=== PATIENT | female | born 1975 | race Two or more races ===

== ENCOUNTER 2017-01-24 05:10 | Emergency (ER) | payer OTHER ==
--- NOTE | 2017-01-24 07:27 | PDOC ---
History of Present Illness - General Chief Complaint: Pain, Acute Stated Complaint: Abdominal Pain Time Seen by Provider: 01/24/17 07:15 History Source: Patient Exam Limitations: No Limitations - History of Present Illness Initial Comments: 01/24/17 07:48 Patient is a 41-year-old female with past medical history of colon cancer, ostomy with reversal who presents to the emergency department today complaining of abdominal pain. Patient states that her pain started approximately at 2 PM yesterday. She states that the pain is crampy in nature and she points that is located in her epigastric and suprapubic regions. She states that the pain is approximately a 6 out of 10. Patient states that she also has headache at this time from the abdominal pain. States that she usually gets headaches. Endorses nausea, vomiting. Denies fevers, chills, head trauma, diarrhea, constipation, chest pain, shortness of breath, hematuria, frequency, urgency and dysuria. Past History - Past Medical History Allergies/Adverse Reactions: Allergies Allergy/AdvReac Type Severity Reaction Status Date / Time hydromorphone HCl AdvReac Severe Verified 01/24/17 07:46 [From Dilaudid] Home Medications: Ambulatory Orders Cephalexin Monohydrate [Keflex -] 500 mg PO Q8H #21 capsule 01/24/17 Ketorolac Tromethamine [Toradol] 10 mg PO TID #21 tablet 01/24/17 Anemia: Yes Asthma: No Cancer: Yes (COLON CANCER) Cardiac Disorders: No CVA: No COPD: No CHF: No Dementia: No Diabetes: No GI Disorders: Yes (CONSTIPATION, RECTAL BLEEDING, COLON CA) Disorders: No HTN: No Hypercholesterolemia: No Liver Disease: No Seizures: No Thyroid Disease: No - Surgical History Abdominal Surgery: Yes (COLON RESECTION,ILEOSTOMY) Appendectomy: No Cardiac Surgery: No Cholecystectomy: No Lung Surgery: No Neurologic Surgery: No Orthopedic Surgery: No - Psycho/Social/Smoking Cessation Hx Anxiety: No Suicidal Ideation: No Smoking Status: No Smoking History: Never smoked Have you smoked in the past 12 months: No Number of Cigarettes Smoked Daily: 0 Hx Alcohol Use: No Drug/Substance Use Hx: No Substance Use Type: None Hx Substance Use Treatment: No Review of Systems - Review of Systems Able to Perform ROS?: Yes Is the patient limited French proficient: No Constitutional: No: Chills, Fever, Malaise Respiratory: No: Cough, Shortness of Breath, Wheezing Cardiac (ROS): No: Chest Pain, Lightheadedness, Palpitations, Syncope ABD/GI: Yes: Nausea, Vomiting, Abdominal cramping. No: Constipated, Diarrhea : No: Burning, Dysuria, Frequency, Flank Pain, Hematuria Musculoskeletal: No: Back Pain Neurological: Yes: Headache. No: Numbness, Tremors, Weakness All Other Systems: Reviewed and Negative *Physical Exam - Physical Exam Comments: 01/24/17 07:45 GENERAL: Well developed, well nourished. AAOx3. No acute distress, breathing easily. HEENT: Normocephalic, atraumatic. PERRLA, EOMI. No conjunctival pallor. Sclera are non- icteric. Moist mucous membranes. Oropharynx is clear. NECK: Supple. Full ROM. No JVD. Carotid pulses 2+ and symmetric, without bruits. No thyromegaly. No lymphadenopathy. CARDIOVASCULAR: Regular rate and rhythm. No murmurs, rubs, or gallops. Distal pulses are 2+ and symmetric. PULMONARY: No evidence of respiratory distress. Lungs clear to auscultation bilaterally. No wheezing, rales or rhonchi. ABDOMINAL: Surgical scar present over the right middle quadrant. TTP of epigastric region and suprapubic region. Soft. Non-distended. No rebound or guarding. No organomegaly. Normoactive bowel sounds. MUSCULOSKELETAL Normal range of motion at all joints. No bony deformities or tenderness. No CVA tenderness. EXTREMITIES: No cyanosis. No clubbing. No edema. No calf tenderness. SKIN: Warm and dry. Normal capillary refill. No rashes. No jaundice. NEUROLOGICAL: Alert, awake, appropriate. Cranial nerves 2-12 intact. No deficits to light touch and temperature in face, upper extremities and lower extremities. No motor deficits in the in face, upper extremities and lower extremities. Normoreflexic in the upper and lower extremities. Normal speech. Toes are down- going bilaterally. Gait is normal without ataxia. PSYCHIATRIC: Cooperative. Good eye contact. Appropriate mood and affect. ED Treatment Course - LABORATORY CBC & Chemistry Diagram: 01/24/17 07:50 01/24/17 07:50 Medical Decision Making - Medical Decision Making 01/24/17 07:54 Patient is a 41-year-old female with past medical history of colon cancer, ostomy with reversal who presents to the emergency department today complaining of abdominal pain. Differential diagnosis includes but is not limited to, cholecystitis, pancreatitis, UTI, kidney stone. Less likely ACS. We will initiate broad abdominal workup given patient's history and treat patient's symptoms. Headache appears to be benign on exam given normal headache pattern with gradual onset, no trauma. Last colonoscopy February 2016, patient sent to return for follow-up colonoscopy in February of this year. Last chemotherapy was in 2013. 1.CBC, CMP, lipase, PT/INR, cardiac profile, UA, UC, urine 2.EKG, chest x-ray, abdominal ultrasound 3.IV fluids, Zofran, Toradol 4.reevaluate 01/24/17 08:01 EKG: Rate 67 BMP, NSR. Normal axis and intervals. No acute ST-T wave changes. 01/24/17 09:57 Abdominal US is without remarkable findings. No evidence of cholecystitis. Will order CT Abd/pelvis at this time. Pt. to begin drinking. Labs remarkable for WBC of 14.4, positive blood and ketones in the urine. *DC/Admit/Observation/Transfer Diagnosis at time of Disposition: History of colon cancer Abdominal mass Qualifiers: Abdominal location: other location Qualified Code(s): R19.09 - Other intra- abdominal and pelvic swelling, mass and lump - Discharge Dispostion Disposition: HOME Condition at time of disposition: Improved Admit: No - Prescriptions Prescriptions: Cephalexin Monohydrate [Keflex -] 500 mg PO Q8H #21 capsule - Referrals Referrals: Pedrito Chambers MD [Staff Physician] - Zoya Gray MD [Staff Physician] - - Patient Instructions Printed Discharge Instructions: DI for Acute Abdomen Additional Instructions: Your CT scan showed a mass in the lower abdomen. You need to follow up with your GI doctor and oncologist. Call them later today or tomorrow for follow up. You were prescribed antibiotics to cover a possible urine infection. Take the medication as prescribed and finish the whole dose even if you feel better. Eat a bland diet for the next 24-48 hours including toast, bananas, apple sauce, and rice. You were prescribed Torodol for pain. Do not take any other NSAID ( advil, motrin, ibuprofen) while taking this medication. Return to the ED if your pain gets worse, you develop fevers or chills, have back pain, or if you have any changes in your symptoms.
[2017-01-24] MEDS ORDERED: SODIUM CHLORIDE 1,000 ML IV STA (07:29)
[2017-01-24] MEDS ORDERED: KETOROLAC TROMETHAMINE 30 MG/1 ML VIAL IVPUSH ONE (07:29)
[2017-01-24] MEDS ORDERED: ONDANSETRON 4 MG/2 ML VIAL IVPUSH ONE (07:29)
[2017-01-24] MEDS ORDERED: KETOROLAC TROMETHAMINE 30 MG/1 ML VIAL ONE (08:07)
[2017-01-24 08:25] LABS: BASOPHIL 0.5 % (0-2.0); EOSINOPHIL 0.4 % (0-4.5); MCH 26.3 pg (25.7-33.7); MCHC 32.7 g/dl (32.0-36.0); MEAN CELL VOLUME 80.5 fl (80-96); MEAN PLT VOLUME 8.5 fl (7.5-11.1); NEUTROPHILS 74.4 % (42.8-82.8); PLATELET COUNT 378 K/MM3 (134-434); RDW 13.8 % (11.6-15.6); WHITE BLOOD COUNT 14.6 K/mm3 (4.0-10.0)
[2017-01-24 08:26] VITALS: TEMP 98.7; BMI 31.2
[2017-01-24 08:43] LABS: INR 1.14 (0.82-1.09); PROTHROMBIN TIME (PATIENT) 12.6 SEC (9.98-11.88)
[2017-01-24 08:46] LABS: URINE APPEARANCE SLCLOUDY; URINE BILIRUBIN NEGATIVE (NEGATIVE); URINE BLOOD 2+ (NEGATIVE); URINE COLOR YELLOW; URINE GLUCOSE (UA) NEGATIVE (NEGATIVE); URINE KETONE 1+ (NEGATIVE); URINE LEUK ESTERASE NEGATIVE (NEGATIVE); URINE NITRITE NEGATIVE (NEGATIVE); URINE PROTEIN NEGATIVE (NEGATIVE); URINE UROBILINOGEN NEGATIVE mg/dL (0.2-1.0)
[2017-01-24 09:09] LABS: ALBUMIN 4.1 g/dl (3.4-5.0); ANION GAP 11 (8-16); BILIRUBIN,TOTAL 1.1 mg/dL (0.2-1.0); CALCIUM 9.6 mg/dL (8.5-10.1); CO2 24 mmol/L (21-32); CREATININE 0.7 mg/dL (0.55-1.02); GLUCOSE,RANDOM 91 mg/dL (74-106); SGPT/ALT 24 U/L (12-78); TOT PROT 8.1 g/dl (6.4-8.2); URINE MUCUS RARE; URINE RBC 17 /hpf (0-3); URINE WBC 1 /hpf (3-5)
[2017-01-24 09:11] LABS: ALK PHOS 108 U/L (45-117); TROPONIN I < 0.02 ng/ml (0.00-0.05)
[2017-01-24 09:38] LABS: SGOT/AST 56 U/L (15-37)
--- NOTE | 2017-01-24 11:29 | EKG ---
Test Reason : Blood Pressure : / mmHG Vent. Rate : 067 BPM Atrial Rate : 067 BPM P-R Int : 118 ms QRS Dur : 074 ms QT Int : 368 ms P-R-T Axes : 021 020 013 degrees QTc Int : 388 ms NORMAL SINUS RHYTHM NORMAL ECG WHEN COMPARED WITH ECG OF 01-FEB-2013 04:26, T WAVE INVERSION LESS EVIDENT IN INFERIOR LEADS Confirmed by CHAGO FITZGERALD MD ([id number]) on 01/24/2017 11:28:46 AM Referred By: Confirmed By:CHAGO FITZGERALD MD
[2017-01-24 13:52] LABS: CPK 222 IU/L (26-192)
[2017-01-24 16:29] VITALS: BP 149/88; PULSE 76
== END 2017-01-24 16:30 | disposition home or self-care (01) ==
LOC: JER 05:10
PROC: 3E0333Z Introduction of Anti-inflammatory into Peripheral Vein, Percutaneous Approach (ICD-10-PCS; principal; 2017-01-24)
DX: R19.09 Other intra-abdominal and pelvic swelling, mass and lump (principal); Z85.038 Personal history of other malignant neoplasm of large intestine
CPT/HCPCS: 36415; 74177-TC; 76705-TC; 80053; 81003; 81015; 82553; 83690; 84484; 84703; 85025; 85610; 87086; 93005; 93010; 96374; 99282-25

== ENCOUNTER 2017-03-02 10:38 | Day surgery (SDC) | payer OTHER ==
[2017-03-01 10:26] VITALS: BMI 31.2
[2017-03-02] MEDS ORDERED: PROPOFOL 20 ML ONE ×2 (11:53)
[2017-03-02 12:24] VITALS: TEMP 97.8
[2017-03-02 12:38] VITALS: PULSE 72
[2017-03-02 13:14] VITALS: BP 141/80
--- NOTE | 2017-03-05 11:35 | PATH ---
Surgical Pathology Report Patient Name: GOLD ANGELES [facility]. Rec. #: [id number] /Age/Gender: 1975 (Age: 41) / F Account: [id number] Location: U-ENDOSCOPY Taken: 03/02/2017 Received: 03/02/2017 Reported: 03/05/2017 Physicians: Pedrito Chambers M.D. Specimen(s) Received A: BX ILEOCECAL VALVE B: BX ANASTOMOSIS Clinical History History of colon cancer Normal anastomosis, hemorrhoids Final Diagnosis A. ILEOCECAL VALVE, BIOPSY: ILEAL MUCOSA WITH MILD ACTIVE NONSPECIFIC INFLAMMATION (SEE COMMENT). NO EVIDENCE OF SIGNIFICANT ARCHITECTURAL DISTORTION, GRANULOMATA OR DYSPLASIA. Comment: The findings are nonspecific and may represent mild active inflammation of various etiologies including infectious and drug/toxin injury. No significant features of chronicity are seen. B. ANASTOMOSIS SITE, BIOPSY: BENIGN COLONIC MUCOSA WITH MILD ARCHITECTURAL DISARRAY CONSISTENT WITH ANASTOMOSIS SITE. NO DYSPLASIA/ADENOMA IDENTIFIED. Electronically Signed Darius Weber M.D. Gross Description A. Received in formalin, labeled "biopsy ileocecal valve" is a nath, irregular portion of soft tissue measuring 0.2 cm in greatest dimension. The specimen is submitted in toto in one cassette. B. Received in formalin, labeled "biopsy anastomosis" are 2 nath, irregular portions of soft tissue measuring 0.1-0.3 cm in greatest dimension. The specimens are submitted in toto in one cassette. [facility]/03/02/2017 [facility]/03/02/2017
== END 2017-03-02 13:15 | disposition home or self-care (01) ==
LOC: JASU-ENDO 10:38
PROVIDERS: ATTEND Internal Medicine Gastroenterology
PROC: 0DBG8ZX Excision of Left Large Intestine, Via Natural or Artificial Opening Endoscopic, Diagnostic (ICD-10-PCS; 2017-03-02)
PROC: 0DBC8ZX Excision of Ileocecal Valve, Via Natural or Artificial Opening Endoscopic, Diagnostic (ICD-10-PCS; principal; 2017-03-02 11:45)
DX: Z12.11 Encounter for screening for malignant neoplasm of colon (principal); Z85.038 Personal history of other malignant neoplasm of large intestine; K63.89 Other specified diseases of intestine; K64.8 Other hemorrhoids; Z98.0 Intestinal bypass and anastomosis status
CPT/HCPCS: 84703; 88305-TC

== ENCOUNTER 2018-08-29 05:28 | Day surgery (SDC) | payer MEDICARE, OTHER ==
[2018-08-28 10:43] VITALS: BMI 31.2
[2018-08-29 12:38] VITALS: BP 139/84; PULSE 80; TEMP 98.6
--- NOTE | 2018-08-29 13:36 | HP ---
Past Medical History - Primary Care Physician PCP:: Steffen Jauregui - Admission Chief Complaint: sterlization History of Present Illness: 43 yo f requesting sterlization, risks and benfit discussed with patient , aware procedure is permanent,and has failure risks and risks of ectopic, risks of procedure discussed History Source: Patient Limitations to Obtaining History: No Limitations - Past Surgical History Hx Myomectomy: No Hx Transabdominal Cerclage: No - Smoking History Smoking history: Never smoked Have you smoked in the past 12 months: No Aproximately how many cigarettes per day: 0 - Alcohol/Substance Use Hx Alcohol Use: No - Social History History of Recent Travel: No Home Medications - Allergies Allergies/Adverse Reactions: Allergies Allergy/AdvReac Type Severity Reaction Status Date / Time hydromorphone HCl AdvReac Severe Verified 01/24/17 07:46 [From Dilaudid] - Home Medications Home Medications: Ambulatory Orders Medroxyprogesterone Acetate [Depo-Provera] 150 mg IM ASDIR 03/01/17 Acetaminophen [Tylenol] 1 tab PO PRN PRN 03/02/17 Review of Systems - Review of Systems Constitutional: reports: No Symptoms Eyes: reports: No Symptoms HENT: reports: No Symptoms Neck: reports: No Symptoms Cardiovascular: reports: No Symptoms Respiratory: reports: No Symptoms Gastrointestinal: reports: No Symptoms Genitourinary: reports: No Symptoms Breasts: reports: No Symptoms Reported Musculoskeletal: reports: No Symptoms Integumentary: reports: No Symptoms Neurological: reports: No Symptoms Endocrine: reports: No Symptoms Hematology/Lymphatic: reports: No Symptoms Physical Exam-[employer] Vital Signs: Vital Signs Temperature 98.6 F 08/29/18 12:37 Pulse Rate 80 08/29/18 12:37 Respiratory Rate 18 08/29/18 12:37 Blood Pressure 139/84 08/29/18 12:37 O2 Sat by Pulse Oximetry (%) 98 08/29/18 12:36 Constitutional: Yes: Well Nourished, No Distress, Calm Eyes: Yes: WNL, Conjunctiva Clear, EOM Intact HENT: Yes: WNL, Atraumatic, Normocephalic Neck: Yes: WNL, Supple, Trachea Midline Cardiovascular: Yes: WNL, Regular Rate and Rhythm Respiratory: Yes: WNL, Regular, CTA Bilaterally Gastrointestinal: Yes: WNL ...Rectal Exam: Yes: WNL Renal/: Yes: WNL Vaginal Exam: Yes: Normal Cervix: Yes: Normal Uterus: Yes: Normal Adnexa: Not Palpable: Left, Right Breast(s): Yes: WNL Musculoskeletal: Yes: WNL Extremities: Yes: WNL Edema: No Integumentary: Yes: WNL Neurological: Yes: WNL, Alert, Oriented ...Motor Strength: WNL Psychiatric: Yes: WNL, Alert, Oriented Problem List - Problem (1) Sterilization Code(s): Z30.2 - ENCOUNTER FOR STERILIZATION Assessment/Plan laparoscopic tubal cauterization
== END 2018-08-29 14:34 | disposition home or self-care (01) ==
LOC: JASU-SURG 05:28
PROVIDERS: ATTEND Obstetrics & Gynecology
DX: Z53.8 Procedure and treatment not carried out for other reasons (principal)
CPT/HCPCS: 84703

== ENCOUNTER 2023-12-09 18:00 | Emergency (ER) | payer OTHER ==
[2023-12-09 18:10] VITALS: RESP 18; BMI 34.2
[2023-12-09] MEDS ORDERED: ACETAMINOPHEN INJECTION 100 ML IVPB ONE (18:38)
[2023-12-09] MEDS ORDERED: DIPHTH,PERTUSS(ACELL),TET 0.5 ML DISP.SYRIN IM ONE (18:38)
[2023-12-09] MEDS: ACETAMINOPHEN 1000 MG/100 ML BAG IVPB ONE (18:44)
[2023-12-09] MEDS: LACTATED RINGERS SOLUTION 1,000 ML/1,000 ML INFUS.BAG IV SCH (18:44)
[2023-12-09] MEDS: DIPHTH,PERTUSS(ACELL),TET 0.5 ML DISP.SYRIN IM ONE (18:44)
[2023-12-09] MEDS: SODIUM CHLORIDE 1,000 ML IV STA (18:44)
[2023-12-09 23:09] VITALS: BP 177/87; PULSE 79; TEMP 98.1
== END 2023-12-09 23:09 | disposition short-term general hospital (02) ==
LOC: JER 18:00 → JERFT 18:00 → JER 23:09
PROC: 3E033NZ Introduction of Analgesics, Hypnotics, Sedatives into Peripheral Vein, Percutaneous Approach (ICD-10-PCS; principal; 2023-12-09)
PROC: 3E0234Z Introduction of Serum, Toxoid and Vaccine into Muscle, Percutaneous Approach (ICD-10-PCS; 2023-12-09)
DX: T21.22XA Burn of second degree of abdominal wall, initial encounter (principal); T24.211A Burn of second degree of right thigh, initial encounter; S40.022A Contusion of left upper arm, initial encounter; W18.39XA Other fall on same level, initial encounter; X12.XXXA Contact with other hot fluids, initial encounter; Z23 Encounter for immunization
CPT/HCPCS: 90471; 90715; 96374; 99285-25; J0131

== ENCOUNTER → 2024-06-26 | Day surgery (SDC) | payer OTHER | END | disposition home or self-care (01) | LOC: FMAMMOTONE 08:45 | PROVIDERS: ATTEND Nurse Practitioner Family | PROC: 0HBT3ZX Excision of Right Breast, Percutaneous Approach, Diagnostic (ICD-10-PCS; principal; 2024-06-26) | DX: N60.11 Diffuse cystic mastopathy of right breast (principal); N64.89 Other specified disorders of breast; R92.1 Mammographic calcification found on diagnostic imaging of breast | CPT/HCPCS: 19081; 76098-TC-FY; 88305-TC ==